=== PATIENT | female | born 2000 | race Caucasian/White ===

== ENCOUNTER 2023-07-06 06:58 | Emergency (ER) | payer SELFPAY ==
[~2023-07-06] VITALS: Ht 165.1 cm; Wt 106.8 kg
[2023-07-06 07:00] VITALS: TEMP 97.7
[2023-07-06 09:51] VITALS: BP 116/72; PULSE 81
[2023-07-06 11:23] LABS: ALBUMIN 3.7 gm/dL (3.5-5.0); BILIRUBIN,TOTAL 0.4 mg/dL (0.2-1.2); C-REACTIVE PROTEIN 1.47 mg/dL (0.00-0.50); CALCIUM 9.6 mg/dL (8.4-10.2); CREATININE, serum 0.76 mg/dL (0.57-1.11); POTASSIUM 3.8 mmol/L (3.5-4.5)
[2023-07-06 11:43] LABS: BASO % 0.3 % (0.0-2.0); EOS # 0.2 K/mm3 (0.0-0.7); GRAN # 6.3 K/mm3 (1.4-6.5); GRAN % 57.7 % (42.2-75.2); HEMOGLOBIN 14.6 g/dl (12.0-15.0); LYMPH # 3.6 K/mm3 (1.2-3.4); LYMPH % 32.9 % (20.0-51.0); MEAN CELL VOLUME 93 fl (80.0-95.0); MEAN CORPUSCULAR HEMOGLOBIN 32 pg (26-32); MEAN CORPUSCULAR HGB CONC 35 g/dl (33.0-37.0); MEAN PLATELET VOLUME 9.8 fl (7.4-10.4); MONO # 0.8 K/mm3 (0.1-0.6); MONO % 6.9 % (1.7-9.3); PLATELET COUNT 262 K/mm3 (130-400); RED BLOOD COUNT 4.52 M/mm3 (4.10-5.30); REDCELL DISTRIBUTION WIDTH-CV 11.3 % (11.5-14.5)
[2023-07-06 11:48] LABS: COLLECTION METHOD CLEAN CATCH
[2023-07-06 11:49] LABS: URINE APPEARANCE Hazy (CLEAR/HAZY); URINE COLOR Yellow (YELLOW)
[2023-07-06 11:50] LABS: URINE BLOOD 2+ (NEGATIVE); URINE GLUCOSE Negative (NEGATIVE); URINE KETONE Negative (NEGATIVE); URINE NITRATE Negative (NEGATIVE); URINE PROTEIN(semi-quant) 2+ (NEGATIVE); URINE UROBILINOGEN 0.2 E.U/dL (0.2-1.0)
[2023-07-06 11:51] LABS: MUCOUS Present (NOT PRESENT); URINE BACTERIA Moderate /hpf (NONE SEEN); URINE RBC 20-50 /hpf (0-2)
== END 2023-07-06 09:56 | disposition home or self-care (01) ==
LOC: COL.ER 06:58
PROVIDERS: Family Medicine
DX: N39.0 Urinary tract infection, site not specified (principal); Z28.310 Unvaccinated for COVID-19
CPT/HCPCS: J2270; J2405; J7030